=== PATIENT | female | born 1940 | race Caucasian/White ===

== ENCOUNTER 2023-08-25 14:29 | Emergency (ER) | payer MEDICARE, OTHER | END 2023-08-25 14:48 | LOC: DL.ED 14:29 | DX: Z53.21 Procedure and treatment not carried out due to patient leaving prior to being seen by health care provider (principal) ==

== ENCOUNTER 2023-10-11 11:41 | Emergency (ER) | payer MEDICARE, OTHER | END 2023-10-11 12:50 | LOC: DL.ED 11:41 | DX: Z53.21 Procedure and treatment not carried out due to patient leaving prior to being seen by health care provider (principal) ==